=== PATIENT | male | born 1995 | race Caucasian/White ===

== ENCOUNTER 2016-06-15 11:47 | Emergency (ER) | payer OTHER ==
[2016-06-15] MEDS ORDERED: Pantoprazole IV* 40 MG IV ONE (12:30)
[2016-06-15] MEDS ORDERED: NS 0.9% 1000 ML* 1,000 ML IV ONE ×2 (12:30→13:08)
[2016-06-15] MEDS ORDERED: Ondansetron INJ* 2 MG/ML VIAL IV ONE (12:30)
[2016-06-15 12:50] LABS: Hematocrit 51 % (42-52); Hemoglobin 17.5 g/dl (14.0-18.0); Mean Corpuscular HGB Conc 34 g/dl (31-36); Mean Corpuscular Hemoglobin 30 pg (27-31); Mean Corpuscular Volume 87 fL (80-94); Mean Platelet Volume 8 um3 (7.4-10.4); Red Blood Count 5.87 10^6/ul (4.0-5.4); Red Cell Distribution Width 13 % (10.5-15); White Blood Count 10.6 10^3/ul (3.5-10.8)
[2016-06-15 13:06] LABS: Albumin 5.2 g/dL (3.2-5.2); BUN/Creatinine Ratio 11.9 (8-20); C Reactive Protein 6.62 mg/L (< 5.00); Calcium 10.5 mg/dL (8.6-10.3); EGFR African American 87.4 (>60); Globulin 2.8 g/dL (2-4); Potassium 3.7 mmol/L (3.5-5.0); Total Bilirubin 1.4 mg/dL (0.2-1.0)
--- NOTE | 2016-06-15 15:18 | ED ---
Alysha Vargas Rebecca, scribed for Shubham Cade MD on 06/15/16 at 1229 . Abdominal Pain/Male - HPI Summary HPI Summary: Pt is a 21 y/o M who presents to ED c/o abd pain. Pain began gradually 1.5 week ago and has bene constant and worsening since onset. Pain is discrete to the epigastric region with radiation to the chest and characterized as burning. Pain is ranked 7/10. Sx aggravated and alleviated by nothing. Tried taking Pepto Bismol this morning which he proceeded to vomit. Additionally c/o SOB, vomiting (5x). Denies diarrhea. Reports he is concerned about the presence of an ulcer due to increased stress and current symptoms. No medication allergies. - History of Current Complaint Chief Complaint: EDAbdPain Stated Complaint: VOMITING, Time Seen by Provider: 06/15/16 12:25 Hx Obtained From: Patient Onset/Duration: Gradual Onset, Lasting Weeks - 1.5 weeks, Still Present Timing: Constant Pain Intensity: 7 Pain Scale Used: 0-10 Numeric Location: Epigastric Radiates: No Character: Burning Aggravating Factor(s): Nothing Alleviating Factor(s): Nothing Associated Signs And Symptoms: Positive: Vomiting - 5x, Other - SOB. Negative: Diarrhea - Allergies/Home Medications Allergies/Adverse Reactions: Allergies Allergy/AdvReac Type Severity Reaction Status Date / Time No Known Allergies Allergy Verified 06/15/16 11:51 PMH/Surg Hx/FS Hx/Imm Hx Previously Healthy: Yes Endocrine/Hematology History: Denies: Hx Diabetes Cardiovascular History: Denies: Hx Hypertension - Surgical History Surgery Procedure, Year, and Place: Left wrist repair, Ankle repair Infectious Disease History: No Infectious Disease History: Denies: Traveled Outside the [place] in Last 30 Days - Family History Known Family History: Negative: Cardiac Disease, Hypertension, Diabetes - Social History Occupation: Student Alcohol Use: Occasionally Substance Use Type: Reports: None Smoking Status (MU): Never Smoked Tobacco Review of Systems Positive: Shortness Of Breath Positive: Abdominal Pain - epigastric, Vomiting - 5x. Negative: Diarrhea All Other Systems Reviewed And Are Negative: Yes Physical Exam - Summary Physical Exam Summary: VITAL SIGNS: Reviewed. GENERAL: Patient is a well developed and nourished male who is lying comfortable in the stretcher. Patient is not in any acute respiratory distress. HEAD AND FACE: Normocephalic and atraumatic. EYES: PERRLA, EOMI x 2, No injected conjunctiva. EARS: Hearing grossly intact. Ear canals and tympanic membranes are WNL. MOUTH: Oropharynx within normal limits. NECK: Supple, trachea is midline, no adenopathy, no JVD. CHEST: Symmetric, no tenderness at palpation LUNGS: Clear to auscultation bilaterally. No wheezing or crackles. CVS: RRR,, S1 and S2 present, no murmurs or gallops appreciated. ABDOMEN: Soft, Positive epigastric tenderness, No signs of distention. Positive bowel sounds. No rebound no guarding, and no masses palpated. No abdominal bruit or pulsations. EXTREMITIES: FROM in all major joints, no edema, no cyanosis or clubbing. NEURO: Alert and oriented x 3. No acute neurological deficits. Speech is normal. SKIN: Dry and warm Triage Information Reviewed: Yes Vital Signs On Initial Exam: Initial Vitals Temp Pulse Resp BP Pulse Ox 98.4 F 76 15 136/68 100 06/15/16 11:47 06/15/16 11:47 06/15/16 11:47 06/15/16 11:47 06/15/16 11:47 Vital Signs Reviewed: Yes Diagnostics - Vital Signs Vital Signs Temp Pulse Resp BP Pulse Ox 06/15/16 11:47 98.4 F 76 15 136/68 100 - Laboratory Result Diagrams: 06/15/16 12:41 06/15/16 12:41 Lab Statement: Any lab studies that have been ordered have been reviewed, and results considered in the medical decision making process. Re-Evaluation - Re-Evaluation First Eval Re-Evaluation Time: 15:05 Change: Improved Comment: Pt is feeling significantly better. Abdominal Pain Fem Course/Dx - Course Assessment/Plan: Pt is a 21 y/o M who presents to ED c/o abd pain. Pain began gradually 1.5 week ago and has been constant and worsening since onset. Pain is discrete to the epigastric region with radiation to the chest and characterized as burning. Pain is ranked 7/10. Sx aggravated and alleviated by nothing. Tried taking Pepto Bismol this morning which he proceeded to vomit. Additionally c/o SOB, vomiting (5x). Denies diarrhea. Reports he is concerned about the presence of an ulcer due to increased stress and current symptoms. No medication allergies. Blood work wnl except for creatinine of 1.34 and CRP of 6.62. Abdominal X ray shows no acute pathology. In the ED course he was given IV fluid, zofran for nausea and vomiting and protonix for epigastric pain. After these medication all his symptoms have improved. I discussed all the findings and test results with the patient. Patient was instructed to return to the emergency room immediately if any of the symptoms return or worsens. Plan of care was discussed with the patient and understands and agrees. All questions were answered at patient satisfaction. There were no further complaints or concerns. P/E: Lungs: CTA B/L. Good air exchange. No wheezing or crackles heard. CVS: S1 and S2 present. No murmurs appreciated. Patient is alert and oriented x 3. Patient is hemodynamically stable. Patient will be discharged home with follow up PMD in the next 2-3 days - Diagnoses Differential Diagnosis/HQI/PQRI: Constipation, Diverticulitis, Peptic Ulcer Disease, Urinary Tract Infection Provider Diagnoses: Nausea, Vomiting, Epigastric pain Discharge - Discharge Plan Condition: Stable Disposition: HOME Prescriptions: Ondansetron ODT TAB* [Zofran Odt TAB*] 4 mg PO Q6H PRN #10 tab.odt PRN Reason: Vomiting Pantoprazole TAB (NF) [Protonix TAB (NF)] 40 mg PO DAILY #14 tab Patient Education Materials: Epigastric Pain (ED) Referrals: [facility] SYEDA Peralta [Medical Doctor] - 3 Days (Follow up with your primary care physician within the next 3 days. ) The documentation as recorded by the Alysha armendariz Rebecca accurately reflects the service I personally performed and the decisions made by me, Shubham Cade MD.
[2016-06-15 16:16] VITALS: BP 127/57
--- NOTE | 2016-06-16 07:27 | RAD ---
INDICATION: Abdominal pain. COMPARISON: There are no prior studies available for comparison. TECHNIQUE: Supine and upright views of the abdomen were obtained. FINDINGS: The small bowel and colon appear nondistended. No free intraperitoneal air is seen. No abnormal calcifications are seen. IMPRESSION: NO EVIDENCE FOR ACUTE FINDING.
== END 2016-06-15 16:10 | disposition home or self-care (01) ==
LOC: ED 11:47
DX: R10.13 Epigastric pain (principal); R11.2 Nausea with vomiting, unspecified
CPT/HCPCS: 36415; 74020; 80053; 82150; 83605; 83690; 85025; 86140; 96360; 96374; 96375; 99283; J2405

== ENCOUNTER 2017-01-04 09:00 | Emergency (ER) | payer OTHER ==
[2017-01-04 09:17] VITALS: BP 133/70
--- NOTE | 2017-01-04 10:02 | RAD ---
HISTORY: Right wrist pain, trauma COMPARISONS: None VIEWS: 5, Frontal, lateral, oblique, and scaphoid deviation views of the right wrist with tip bander views of both wrists FINDINGS: BONE DENSITY: Normal. BONES: There is no displaced fracture. The scapholunate interval is normal. JOINTS: There is no arthropathy. ALIGNMENT: There is no dislocation. SOFT TISSUES: Unremarkable. OTHER FINDINGS: The patient is status post internal fixation of the left scaphoid. IMPRESSION: NO ACUTE OSSEOUS INJURY. IF SYMPTOMS PERSIST, RECOMMEND REPEAT IMAGING.
[2017-01-04] MEDS ORDERED: Ibuprofen TAB* 600 MG PO ONE (10:09)
--- NOTE | 2017-01-04 10:31 | UC ---
Alexandre Vargas Angela, scribed for Chilo Avelar MD on 01/04/17 at 0945 . Upper Extremity HPI - HPI Summary HPI Summary: This pt is a 21 y/o male presenting to [facility] c/o right wrist pain s/p injury while "play fighting" last night. Pt reports he was play boxing and is unsure if his wrist went up or down during his injury. He states pain with movement of wrist. Pt notes he injured his right thumb a couple of weeks ago. Pt has been using a splint for his thumb with some relief. He denies any other injury, right arm pain, headache, fever, weakness or numbness in UE. Pt reports a PMHx of left wrist injury 1 year ago. - History of Current Complaint Chief Complaint: UCUpperExtremity Stated Complaint: HAND INJURY Time Seen by Provider: 01/04/17 09:32 Hx Obtained From: Patient Onset/Duration: Sudden Onset - s/p injury Location Of Pain: Is Discrete @ - right wrist Aggravating Factor(s): Movement Alleviating Factor(s): Nothing, Rest Associated Signs And Symptoms: Negative: Weakness, Numbness/Tingling - Allergies/Home Medications Allergies/Adverse Reactions: Allergies Allergy/AdvReac Type Severity Reaction Status Date / Time No Known Allergies Allergy Verified 01/04/17 09:10 PMH/Surg Hx/FS Hx/Imm Hx Other Endocrine History: DENIES: diabetes Other Cardiovascular History: DENIES: hypertension - Surgical History Surgical History: Yes Surgery Procedure, Year, and Place: Left wrist repair, Ankle repair - Family History Known Family History: Negative: Cardiac Disease, Hypertension, Diabetes - Social History Alcohol Use: Occasionally Substance Use Type: None Smoking Status (MU): Never Smoked Tobacco Review of Systems Constitutional: Negative Skin: Negative Eyes: Negative Respiratory: Negative Cardiovascular: Negative Musculoskeletal: Other: - POSITIVE: right wrist pain Neurological: Negative All Other Systems Reviewed And Are Negative: Yes Physical Exam Triage Information Reviewed: Yes Vital Signs: Initial Vital Signs Temp 98.1 F 01/04/17 09:10 Pulse 79 01/04/17 09:10 Resp 16 01/04/17 09:10 BP 133/70 01/04/17 09:10 Pulse Ox 100 01/04/17 09:10 Vital Signs Reviewed: Yes - Additional Comments General: well-appearing, no pain distress Skin: warm, color reflects adequate perfusion, dry Head: normal Eyes: EOMI, RASHIDA ENT: normal Neck: supple, nontender Respiratory: CTA, breath sounds present Cardiovascular: RRR Musculoskeletal: RUE: tender at the base of the first and second metacarpal. Minimal tenderness in the snuff box. The area that is most tender is the proximal first and second metacarpal on the dorsal aspect. Good ROM. There is pain with abduction and adduction of the right wrist, but no pain with flexion and extension. There is pain with thenar flexion. Neurological: normal, sensory/motor intact, A&O x3 Psychological: affect/mood appropriate Diagnostics - Radiology Right wrist XR Xray Interpretation: No Acute Changes - IMPRESSION: No acute osseous injury. If symptoms persist, recommend repeat imaging. ED physician has reviewed this radiology report and agrees. Radiology Interpretation Completed By: Radiologist Upper Extremity Course/Dx - Course Course Of Treatment: This pt is a 21 y/o male presenting to [facility] c/o right wrist pain s/p injury while "play fighting" last night. Pt reports he was play boxing and is unsure if his wrist went up or down during his injury. He states pain with movement of wrist. Pt notes he injured his right thumb a couple of weeks ago. Pt has been using a splint for his thumb with some relief. He denies any other injury, right arm pain, headache, fever. Pt reports a PMHx of left wrist injury 1 year ago. Elevated BP noted and is advised to follow up with PCP. Medications reviewed. XR of right wrist shows no acute osseous injury. If symptoms persist, recommend repeat imaging. ED physician has reviewed this radiology report and agrees. MINIMAL SNUFF BOX TENDERNESS. THE MOST TENDER AREA IS THE PROXIMAL 1ST & 2ND METACARPALS. THE RIGHT THUMB HAS FROM AND STRENGTH IS NORMAL. THUMB SPICA SPLINT PLACED. DISCUSSED THE NEED FOR RECHECK IF NOT COMPLETELY IMPROVED. PATIENT WILL F/U WITH [facility]. - Differential Dx/Diagnosis Provider Diagnoses: RIGHT WRIST SPRAIN Discharge - Discharge Plan Condition: Stable Disposition: HOME Patient Education Materials: Wrist Injury (ED) Referrals: [facility] [Outside] No Primary Care Phys,NOPCP [Primary Care Provider] - Additional Instructions: FOLLOW UP WITH YOUR DOCTOR. GET RECHECKED FOR ANY WORSENING OF YOUR CONDITION; PERSISTENT PAIN, DECREASED RANGE OF MOTION OR QUESTIONS OR CONCERNS. The documentation as recorded by the Alexandre armendariz Angela accurately reflects the service I personally performed and the decisions made by me, Chilo Avelar MD.
== END 2017-01-04 10:17 | disposition home or self-care (01) ==
LOC: UCEAST 09:00
DX: S63.501A Unspecified sprain of right wrist, initial encounter (principal); Y93.71 Activity, boxing; X58.XXXA Exposure to other specified factors, initial encounter
CPT/HCPCS: 99213; A9270-GY; G0463